=== PATIENT | male | born 1970 | race Caucasian/White ===

== ENCOUNTER 2024-10-22 11:14 | Emergency (ER) | payer MEDICAID ==
[2024-10-22] MEDS: KETOROLAC 30MG/ML VIAL IM ONE (12:22)
[2024-10-22] MEDS ORDERED: IBUP-2029 MT (13:16)
[2024-10-22 13:49] VITALS: BP 130/76; PULSE 60; RESP 16; O2SAT 100
== END 2024-10-22 13:50 | disposition home or self-care (01) ==
LOC: ER 11:14
DX: M25.521 Pain in right elbow (principal); M79.631 Pain in right forearm; M25.531 Pain in right wrist; Y04.0XXA Assault by unarmed brawl or fight, initial encounter; Y93.89 Activity, other specified; Y92.481 Parking lot as the place of occurrence of the external cause; Y99.8 Other external cause status
CPT/HCPCS: 99284; 73080; 73090; 73110; 96372; J1885